=== PATIENT | female | born 1950 | race Asian ===

== ENCOUNTER → 2017-11-19 | Outpatient (CLI) | payer MEDICARE | LOC: CFH 09:41 | PROVIDERS: ATTEND Obstetrics & Gynecology | DX: Z12.31 Encounter for screening mammogram for malignant neoplasm of breast (principal) | CPT/HCPCS: 77067 ==

== ENCOUNTER → 2019-01-10 | Outpatient (CLI) | payer MEDICARE | END | disposition home or self-care (01) | LOC: CFH 10:04 | PROVIDERS: ATTEND Family Medicine | DX: Z12.31 Encounter for screening mammogram for malignant neoplasm of breast (principal) | CPT/HCPCS: 77067 ==

== ENCOUNTER → 2020-01-11 | Outpatient (CLI) | payer MEDICARE | END | disposition home or self-care (01) | LOC: CFH 09:54 | PROVIDERS: ATTEND Family Medicine | DX: Z12.31 Encounter for screening mammogram for malignant neoplasm of breast (principal) | CPT/HCPCS: 77067 ==

== ENCOUNTER → 2021-04-11 | Outpatient (CLI) | payer MEDICARE ==
[~2021-04-11] MED LIST: ACET-2065 PO; ACET325T26 PO; ALEND; ATOR-2 PO; CALC-780 PO; CALC1CAP8 PO; CHOL10003 PO; DORZ1DRO7 EACHEYE; GLIM4TAB8 PO; INSU100C SQ-INSULIN; INSU100I11 SQ-INSULIN; INSU100I13 SQ-INSULIN; INSU100V8 SQ; LATA7.5D EACHEYE; LISI2.5T PO; METF500T17 PO; OXYC5TAB98 PO; alendronate sodium PO
[2021-04-11 13:43] LABS: ALBUMIN 3.3 g/dL (3.4-5.0); ANION GAP 6 mmol/L (5-15); CALCIUM 8.5 mg/dL (8.5-10.1); CHLORIDE 101 mmol/L (98-107)
[2021-04-11 13:46] LABS: ALANINE AMINOTRANSFERASE 90 U/L (12-78); ALKALINE PHOSPHATASE 136 U/L (45-117); BILIRUBIN,TOTAL 1.6 mg/dL (0.2-1.0); CREATININE 0.69 mg/dL (0.55-1.02); TOTAL PROTEIN 7.5 g/dL (6.4-8.2)
== END | disposition home or self-care (01) ==
LOC: STAR 12:34
PROVIDERS: ATTEND Internal Medicine
DX: Z01.818 Encounter for other preprocedural examination (principal); C25.9 Malignant neoplasm of pancreas, unspecified; K83.1 Obstruction of bile duct; Z20.822 Contact with and (suspected) exposure to COVID-19
CPT/HCPCS: 36415; 80053; 93005; U0003; U0005

== ENCOUNTER 2021-04-15 09:18 | Day surgery (SDC) | payer MEDICARE ==
[~2021-04-15] VITALS: Ht 152.4 cm; Wt 36.4 kg
[2021-04-15 09:53] VITALS: BP 114/78
[2021-04-15] MEDS ORDERED: LACTATED RINGERS 1,000 ML IV SCH (10:00)
[2021-04-15] MEDS ORDERED: CHLORHEXIDINE 15 ML UDC PO ONE (10:00)
[2021-04-15] MEDS ORDERED: FENTANYL PF 100 MCG/2ML ONE (11:32)
[2021-04-15] MEDS ORDERED: PROPOFOL 10 MG/ML, 20ML ONE (11:35)
[2021-04-15] MEDS ORDERED: ONDANSETRON 2MG/ML, 2ML ONE (11:35)
[2021-04-15] MEDS ORDERED: SUCCINYLCHOLINE 20 MG/ML, 10ML ONE (11:35)
[2021-04-15] MEDS ORDERED: DEXAMETHASONE 4 MG/ML, 1ML ONE (11:35)
[2021-04-15] MEDS ORDERED: CEFAZOLIN 1,000 MG ONE (11:35)
[2021-04-15] MEDS ORDERED: PHENYLEPHRINE 10 MG/ML ONE (11:35)
[2021-04-15] MEDS ORDERED: PROMETHAZINE 25 MG/ML, 1ML IV PRN (12:00)
[2021-04-15] MEDS ORDERED: ACETAMINOPHEN 650 MG/20.3 ML UDC PO ONE (12:00)
[2021-04-15] MEDS ORDERED: EPHEDRINE 50 MG/ML, 1ML IVPush PRN (12:00)
[2021-04-15] MEDS ORDERED: ONDANSETRON 2MG/ML, 2ML IV ONE (12:00)
[2021-04-15] MEDS ORDERED: LABETALOL 5MG/ML, 20ML IV PRN (12:00)
[2021-04-15] MEDS ORDERED: hydrALAzine 20 MG/ML, 1ML IV PRN (12:00)
[2021-04-15] MEDS ORDERED: METOPROLOL 1 MG/ML, 5ML IV PRN (12:00)
[2021-04-15] MEDS ORDERED: FENTANYL PF 100 MCG/2ML IV PRN (12:00)
[2021-04-15] MEDS ORDERED: OXYcodone 5 MG/5 ML ORAL.SOL UDC PO PRN (12:00)
== END 2021-04-15 14:50 | disposition home or self-care (01) ==
LOC: OUT 09:18
PROVIDERS: ATTEND Internal Medicine
DX: Z46.59 Encounter for fitting and adjustment of other gastrointestinal appliance and device (principal); C25.9 Malignant neoplasm of pancreas, unspecified; K83.1 Obstruction of bile duct; E43 Unspecified severe protein-calorie malnutrition; E11.65 Type 2 diabetes mellitus with hyperglycemia; I10 Essential (primary) hypertension; E78.5 Hyperlipidemia, unspecified; M19.90 Unspecified osteoarthritis, unspecified site; H40.9 Unspecified glaucoma; Z79.4 Long term (current) use of insulin; Z79.899 Other long term (current) drug therapy; Z83.3 Family history of diabetes mellitus; Z80.1 Family history of malignant neoplasm of trachea, bronchus and lung
CPT/HCPCS: 43274; 74328; 82962; C1769; C1894; C2625; J0330; J0690; J1100; J2370; J2405; J2704; J3010; Q9967

== ENCOUNTER 2021-04-25 12:28 | Day surgery (SDC) | payer MEDICARE ==
[~2021-04-25] VITALS: Ht 152.4 cm; Wt 38.0 kg
[~2021-04-25 12:28] MED LIST changes: +OXYC5CAP2 PO
[2021-04-25 12:39] VITALS: BP 152/83
[2021-04-25] MEDS ORDERED: CHLORHEXIDINE 15 ML UDC ONE (12:44)
[2021-04-25] MEDS ORDERED: BUPIVACAINE/PF 0.5% ONE (12:47)
[2021-04-25] MEDS ORDERED: HEPARIN 1,000 UNITS/ML, 10ML ONE (12:47)
[2021-04-25] MEDS ORDERED: HEPARIN 5,000 UNITS/ML, 1ML ONE (12:47)
[2021-04-25] MEDS ORDERED: EPINEPHRINE 1 MG/ML, 1ML ONE (12:47)
[2021-04-25] MEDS ORDERED: LIDOCAINE/PF 1%, 30ML ONE (12:47)
[2021-04-25] MEDS ORDERED: LACTATED RINGERS 1,000 ML IV SCH (13:00)
[2021-04-25] MEDS ORDERED: CHLORHEXIDINE 15 ML UDC PO ONE (13:00)
[2021-04-25] MEDS ORDERED: FENTANYL PF 100 MCG/2ML ONE (13:06)
[2021-04-25] MEDS ORDERED: CEFAZOLIN 1,000 MG ONE (13:07)
[2021-04-25] MEDS ORDERED: DEXAMETHASONE 4 MG/ML, 1ML ONE (13:07)
[2021-04-25] MEDS ORDERED: PROPOFOL 10 MG/ML, 20ML ONE ×2 (13:43)
[2021-04-25] MEDS ORDERED: ONDANSETRON 2MG/ML, 2ML ONE (13:43)
[2021-04-25] MEDS ORDERED: ACETAMINOPHEN 325 MG TABLET PO PRN (14:00)
[2021-04-25] MEDS ORDERED: PROMETHAZINE 25 MG/ML, 1ML IVPush PRN (14:00)
[2021-04-25] MEDS ORDERED: HYDROmorphone 1 MG/ML, 1ML INJ IVPush PRN (14:00)
[2021-04-25] MEDS ORDERED: FENTANYL PF 100 MCG/2ML IV PRN (14:00)
[2021-04-25] MEDS ORDERED: ONDANSETRON 2MG/ML, 2ML IVPush PRN (14:00)
[2021-04-25] MEDS ORDERED: hydrALAzine 20 MG/ML, 1ML IV PRN (14:00)
[2021-04-25] MEDS ORDERED: LABETALOL 5MG/ML, 20ML IV PRN (14:00)
[2021-04-25] MEDS ORDERED: OXYcodone 5 MG/5 ML ORAL.SOL UDC PO PRN (14:00)
== END 2021-04-25 15:35 | disposition home or self-care (01) ==
LOC: OUT 12:28
PROVIDERS: ATTEND Surgery
DX: C25.0 Malignant neoplasm of head of pancreas (principal); E11.9 Type 2 diabetes mellitus without complications; I10 Essential (primary) hypertension; E78.5 Hyperlipidemia, unspecified; Z20.822 Contact with and (suspected) exposure to COVID-19; Z79.4 Long term (current) use of insulin; Z79.891 Long term (current) use of opiate analgesic; Z79.899 Other long term (current) drug therapy
CPT/HCPCS: 36561; 77001; 82962; C1788; J0171; J0690; J1100; J1644; J2405; J2704; J3010; J7120; U0003; U0005

== ENCOUNTER 2021-05-01 09:03 | Day surgery (SDC) | payer MEDICARE ==
[~2021-05-01] VITALS: Ht 152.4 cm; Wt 38.1 kg
[2021-05-01] MEDS ORDERED: SODIUM CHLORIDE 0.9% 1,000 ML IV SCH (10:00)
[2021-05-01 10:29] VITALS: BP 152/67
[2021-05-01] MEDS ORDERED: TRAM50TA2 PO (10:35)
[2021-05-01] MEDS ORDERED: PROM25TA10 PO (10:35)
[2021-05-01 10:49] LABS: INTERNATIONAL NORMALIZED RATIO 0.97 (0.93-1.1); PROTHROMBIN TIME 10.4 Seconds (9.6-11.5)
[2021-05-01] MEDS ORDERED: MIDAZOLAM 1 MG/ML, 5ML ONE (10:51)
[2021-05-01] MEDS ORDERED: NALOXONE 1 MG/ML, 2ML ONE (10:51)
[2021-05-01] MEDS ORDERED: FENTANYL PF 100 MCG/2ML ONE (10:51)
[2021-05-01] MEDS ORDERED: FLUMAZENIL 0.1 MG/1 ML, 5ML ONE (10:51)
== END 2021-05-01 12:48 | disposition home or self-care (01) ==
LOC: OUT 09:03
PROVIDERS: ATTEND Internal Medicine Hematology & Oncology
DX: C25.0 Malignant neoplasm of head of pancreas (principal); C78.7 Secondary malignant neoplasm of liver and intrahepatic bile duct; E11.9 Type 2 diabetes mellitus without complications; I10 Essential (primary) hypertension; E78.5 Hyperlipidemia, unspecified; M81.0 Age-related osteoporosis without current pathological fracture; Z79.4 Long term (current) use of insulin; Z79.899 Other long term (current) drug therapy; Z80.1 Family history of malignant neoplasm of trachea, bronchus and lung
CPT/HCPCS: 36415; 47000; 77012; 85610; 88307; 99156; 99157; J2250; J3010; J7030; J2310

== ENCOUNTER 2021-05-06 22:57 | Inpatient (IN) | payer MEDICARE ==
[~2021-05-06] VITALS: Ht 152.4 cm; Wt 42.9 kg
[~2021-05-06 22:57] MED LIST changes: +PROM25TA10 PO; +TRAM50TA2 PO
[2021-05-07 00:19] VITALS: BP 103/65
[2021-05-07 00:27] VITALS: BP 103/65
[2021-05-07] MEDS ORDERED: DOCUSATE 100 MG CAPSULE PO PRN (01:30)
[2021-05-07] MEDS ORDERED: LABETALOL 5MG/ML, 20ML IVPush PRN (01:30)
[2021-05-07] MEDS: PIPERACILLIN/TAZO 3.375 GM in DEXTROSE 5% 50 ML IVPB SCH ×3 (02:41→17:30)
[2021-05-07] MEDS: ENOXAPARIN 40 MG/0.4 ML SQ SCH (02:42)
[2021-05-07 03:01] LABS: BASOPHILS % (AUTO) 0 % (0-1); EOSINOPHILS % (AUTO) 0 % (1-7); LYMPHOCYTES % (AUTO) 2 % (22-44); MEAN CORPUSCULAR HEMOGLOBIN 31.3 pg (27.0-34.8); MEAN CORPUSCULAR HGB CONC 33.7 g/dL (32.4-35.8); MEAN PLATELET VOLUME 8.5 fL (7.4-10.4); MONOCYTES % (AUTO) 4 % (2-9); NEUTROPHILS % (AUTO) 94 % (42-75); PLATELET COUNT 130 x10^3/uL (130-400); RED BLOOD COUNT 3.22 x10^6/uL (3.82-5.3); RED CELL DISTRIBUTION WIDTH 15.6 % (9.6-15.2)
[2021-05-07 03:16] LABS: ALANINE AMINOTRANSFERASE 547 U/L (12-78); ALBUMIN 2.8 g/dL (3.4-5.0); ANION GAP 10 mmol/L (5-15); CALCIUM 8.4 mg/dL (8.5-10.1); CHLORIDE 104 mmol/L (98-107); CREATININE 0.52 mg/dL (0.55-1.02)
[2021-05-07 03:19] LABS: ALKALINE PHOSPHATASE 229 U/L (45-117); BILIRUBIN,TOTAL 2.8 mg/dL (0.2-1.0); TOTAL PROTEIN 6.3 g/dL (6.4-8.2)
[2021-05-07] MEDS: OXYcodone IR 5MG TABLET PO PRN ×2 (07:08→11:09)
[2021-05-07 07:14] VITALS: BP 128/76
[2021-05-07] MEDS: INSULIN LISPRO 100 UNITS/ML, PEN SQ-INSULIN SCH ×4 (08:11→21:17)
[2021-05-07 12:58] VITALS: BP 113/70
[2021-05-07] MEDS: KETOROLAC 30 MG/1 ML IV PRN ×2 (13:47→23:22)
[2021-05-07 19:10] VITALS: BP 124/69
[2021-05-07] MEDS ORDERED: INSULIN GLARGINE 100 UNITS/ML, PEN SQ-INSULIN SCH (21:00)
[2021-05-08] MEDS ORDERED: PIPERACILLIN/TAZO 4.5 GM in DEXTROSE 5% 50 ML IVPB SCH (01:30)
[2021-05-08 01:31] VITALS: BP 137/76
[2021-05-08] MEDS: ENOXAPARIN 40 MG/0.4 ML SQ SCH (02:51)
[2021-05-08] MEDS: OXYcodone IR 5MG TABLET PO PRN ×2 (02:53→15:15)
[2021-05-08 04:50] LABS: BASOPHILS % (AUTO) 0 % (0-1); EOSINOPHILS % (AUTO) 0 % (1-7); LYMPHOCYTES % (AUTO) 5 % (22-44); MEAN CORPUSCULAR HEMOGLOBIN 31.8 pg (27.0-34.8); MEAN PLATELET VOLUME 8.5 fL (7.4-10.4); MONOCYTES % (AUTO) 3 % (2-9); NEUTROPHILS % (AUTO) 91 % (42-75); PLATELET COUNT 133 x10^3/uL (130-400); RED BLOOD COUNT 3.33 x10^6/uL (3.82-5.3); RED CELL DISTRIBUTION WIDTH 15.4 % (9.6-15.2)
[2021-05-08 05:01] LABS: ALANINE AMINOTRANSFERASE 443 U/L (12-78); ALBUMIN 2.7 g/dL (3.4-5.0); ANION GAP 10 mmol/L (5-15); CALCIUM 8.2 mg/dL (8.5-10.1); CHLORIDE 100 mmol/L (98-107); CREATININE 0.61 mg/dL (0.55-1.02)
[2021-05-08 05:03] LABS: ALKALINE PHOSPHATASE 244 U/L (45-117); BILIRUBIN,TOTAL 2.4 mg/dL (0.2-1.0); TOTAL PROTEIN 6.5 g/dL (6.4-8.2)
[2021-05-08 07:07] VITALS: BP 147/72
[2021-05-08] MEDS: INSULIN LISPRO 100 UNITS/ML, PEN SQ-INSULIN SCH ×4 (07:52→20:55)
[2021-05-08] MEDS ORDERED: PIPERACILLIN/TAZO 4.5 GM in DEXTROSE 5% 100 ML IVPB SCH (08:55)
[2021-05-08 11:15] VITALS: BP 148/80
[2021-05-08] MEDS: ONDANSETRON 2MG/ML, 2ML IVPush PRN (11:48)
[2021-05-08 12:48] VITALS: BP 146/73
[2021-05-08] MEDS: PIPERACILLIN/TAZO 4.5 GM in DEXTROSE 5% 100 ML IVPB SCH ×2 (15:14→20:56)
[2021-05-08 18:31] VITALS: BP 146/76
[2021-05-08] MEDS ORDERED: INSULIN GLARGINE 100 UNITS/ML, PEN SQ-INSULIN SCH (21:00)
[2021-05-08] MEDS: KETOROLAC 30 MG/1 ML IV PRN (21:49)
[2021-05-09 01:24] VITALS: BP 146/71
[2021-05-09] MEDS: PIPERACILLIN/TAZO 4.5 GM in DEXTROSE 5% 100 ML IVPB SCH ×4 (03:03→21:24)
[2021-05-09] MEDS: ENOXAPARIN 40 MG/0.4 ML SQ SCH (05:18)
[2021-05-09 05:31] LABS: BASOPHILS % (AUTO) 0 % (0-1); EOSINOPHILS % (AUTO) 0 % (1-7); LYMPHOCYTES % (AUTO) 10 % (22-44); MEAN CORPUSCULAR HEMOGLOBIN 31.5 pg (27.0-34.8); MEAN CORPUSCULAR HGB CONC 33.9 g/dL (32.4-35.8); MEAN PLATELET VOLUME 9.1 fL (7.4-10.4); MONOCYTES % (AUTO) 4 % (2-9); NEUTROPHILS % (AUTO) 86 % (42-75); PLATELET COUNT 161 x10^3/uL (130-400); RED BLOOD COUNT 3.35 x10^6/uL (3.82-5.3); RED CELL DISTRIBUTION WIDTH 15.7 % (9.6-15.2)
[2021-05-09 05:41] LABS: CHLORIDE 97 mmol/L (98-107)
[2021-05-09 05:48] LABS: ALANINE AMINOTRANSFERASE 295 U/L (12-78); ALBUMIN 2.7 g/dL (3.4-5.0); ALKALINE PHOSPHATASE 229 U/L (45-117); ANION GAP 13 mmol/L (5-15); BILIRUBIN,TOTAL 1.5 mg/dL (0.2-1.0); CALCIUM 8.1 mg/dL (8.5-10.1); CREATININE 0.58 mg/dL (0.55-1.02); TOTAL PROTEIN 6.5 g/dL (6.4-8.2)
[2021-05-09 06:37] VITALS: BP 131/75
[2021-05-09] MEDS: INSULIN LISPRO 100 UNITS/ML, PEN SQ-INSULIN SCH ×4 (07:34→20:50)
[2021-05-09 12:23] VITALS: BP 135/71
[2021-05-09] MEDS: ONDANSETRON 2MG/ML, 2ML IVPush PRN ×2 (12:35→20:56)
[2021-05-09] MEDS: KETOROLAC 30 MG/1 ML IV PRN ×2 (16:06→21:36)
[2021-05-09] MEDS: PROMETHAZINE 25 MG/ML, 1ML IM PRN (17:08)
[2021-05-09 18:44] VITALS: BP 132/76
[2021-05-09] MEDS: MELATONIN 5 MG TABLET PO PRN (21:24)
[2021-05-09] MEDS: OXYcodone IR 5MG TABLET PO PRN (22:18)
[2021-05-10 01:19] VITALS: BP 129/69
[2021-05-10] MEDS: PIPERACILLIN/TAZO 4.5 GM in DEXTROSE 5% 100 ML IVPB SCH ×2 (03:15→09:22)
[2021-05-10] MEDS: ENOXAPARIN 40 MG/0.4 ML SQ SCH (05:26)
[2021-05-10 07:10] VITALS: BP 123/73
[2021-05-10] MEDS: INSULIN LISPRO 100 UNITS/ML, PEN SQ-INSULIN SCH ×4 (07:49→22:00)
[2021-05-10] MEDS: INSULIN GLARGINE 100 UNITS/ML, PEN SQ-INSULIN SCH ×2 (11:12→22:01)
[2021-05-10] MEDS: PROMETHAZINE 25 MG/ML, 1ML IM PRN (13:57)
[2021-05-10 14:29] VITALS: BP 121/72
[2021-05-10 17:10] VITALS: BP 122/75
[2021-05-10] MEDS: OXYcodone IR 5MG TABLET PO PRN (19:24)
[2021-05-10] MEDS: CIPROFLOXACIN 500 MG TABLET PO SCH (21:51)
[2021-05-10] MEDS: MELATONIN 5 MG TABLET PO PRN (21:59)
[2021-05-11] VITALS (7 sets, daily range): BP systolic 106–129; BP diastolic 60–78
[2021-05-11 05:07] LABS: BASOPHILS % (AUTO) 1 % (0-1); EOSINOPHILS % (AUTO) 0 % (1-7); LYMPHOCYTES % (AUTO) 17 % (22-44); MEAN CORPUSCULAR HEMOGLOBIN 32.4 pg (27.0-34.8); MEAN CORPUSCULAR HGB CONC 34.8 g/dL (32.4-35.8); MEAN PLATELET VOLUME 8.3 fL (7.4-10.4); MONOCYTES % (AUTO) 7 % (2-9); NEUTROPHILS % (AUTO) 75 % (42-75); PLATELET COUNT 211 x10^3/uL (130-400); RED BLOOD COUNT 2.31 x10^6/uL (3.82-5.3); RED CELL DISTRIBUTION WIDTH 14.8 % (9.6-15.2)
[2021-05-11 05:18] LABS: CHLORIDE 99 mmol/L (98-107)
[2021-05-11 05:24] LABS: ALANINE AMINOTRANSFERASE 147 U/L (12-78); ALBUMIN 2.5 g/dL (3.4-5.0); ALKALINE PHOSPHATASE 147 U/L (45-117); ANION GAP 7 mmol/L (5-15); BILIRUBIN,TOTAL 0.8 mg/dL (0.2-1.0); CREATININE 0.36 mg/dL (0.55-1.02); TOTAL PROTEIN 5.6 g/dL (6.4-8.2)
[2021-05-11] MEDS: PROMETHAZINE 25 MG/ML, 1ML IM PRN ×2 (05:43→22:51)
[2021-05-11] MEDS: INSULIN LISPRO 100 UNITS/ML, PEN SQ-INSULIN SCH ×4 (07:32→20:55)
[2021-05-11] MEDS: CIPROFLOXACIN 500 MG TABLET PO SCH ×2 (08:10→20:41)
[2021-05-11] MEDS ORDERED: OMNIPAQUE 350 MG/ML, 75ML BOTTLE ONE (09:49)
[2021-05-11] MEDS: PANTOPRAZOLE 40 MG IV IVPush SCH ×2 (10:27→20:41)
[2021-05-11] MEDS: ONDANSETRON 2MG/ML, 2ML IVPush PRN ×2 (13:37→19:48)
[2021-05-11] MEDS: INSULIN GLARGINE 100 UNITS/ML, PEN SQ-INSULIN SCH (20:55)
[2021-05-12 02:25] VITALS: BP 123/69
[2021-05-12 06:56] VITALS: BP 138/76
[2021-05-12] MEDS: INSULIN LISPRO 100 UNITS/ML, PEN SQ-INSULIN SCH ×2 (07:00→11:10)
[2021-05-12] MEDS: CIPROFLOXACIN 500 MG TABLET PO SCH (09:05)
[2021-05-12] MEDS: PANTOPRAZOLE 40 MG IV IVPush SCH (09:05)
[2021-05-12] MEDS ORDERED: PROPOFOL 100 ML ONE (13:30)
[2021-05-12] MEDS ORDERED: FENTANYL PF 100 MCG/2ML IV PRN (14:30)
[2021-05-12] MEDS ORDERED: OXYcodone 5 MG/5 ML ORAL.SOL UDC PO PRN (14:30)
[2021-05-12] MEDS ORDERED: ONDANSETRON 2MG/ML, 2ML IVPush PRN (14:30)
[2021-05-12] MEDS ORDERED: LORazepam 2 MG/ML, 1ML IVPush PRN (14:30)
[2021-05-12] MEDS ORDERED: HYDROmorphone 1 MG/ML, 1ML INJ IVPush PRN (14:30)
[2021-05-12] MEDS ORDERED: PROMETHAZINE 25 MG SUPP PR PRN (14:30)
[2021-05-12] MEDS ORDERED: ACETAMINOPHEN 325 MG TABLET PO PRN (14:30)
[2021-05-12] MEDS ORDERED: PROMETHAZINE 25 MG/ML, 1ML IVPush PRN (14:30)
[2021-05-12] MEDS ORDERED: OXYcodone 5 MG/5 ML ORAL.SOL UDC ONE (14:35)
[2021-05-12] MEDS ORDERED: FENTANYL PF 100 MCG/2ML ONE (14:35)
[2021-05-12] MEDS ORDERED: PANT40TA3 PO (15:30)
[2021-05-12] MEDS ORDERED: TRAM50TA2 PO (15:30)
[2021-05-12] MEDS ORDERED: PROM25TA10 PO (15:30)
[2021-05-12] MEDS ORDERED: CIPR500T87 PO (15:30)
== END 2021-05-12 16:55 | disposition home health service (06) | DRG 871 ==
LOC: 4NW 05-07 00:09
PROVIDERS: ADMIT Internal Medicine; ATTEND Hospitalist
PROC: 30233N1 Transfusion of Nonautologous Red Blood Cells into Peripheral Vein, Percutaneous Approach (ICD-10-PCS; principal; 2021-05-11)
PROC: 0DB78ZX Excision of Stomach, Pylorus, Via Natural or Artificial Opening Endoscopic, Diagnostic (ICD-10-PCS; 2021-05-12)
DX: A41.51 Sepsis due to Escherichia coli [E. coli] (principal); K22.11 Ulcer of esophagus with bleeding; K25.4 Chronic or unspecified gastric ulcer with hemorrhage; K26.4 Chronic or unspecified duodenal ulcer with hemorrhage; C78.7 Secondary malignant neoplasm of liver and intrahepatic bile duct; D62 Acute posthemorrhagic anemia; R64 Cachexia; Z68.1 Body mass index [BMI] 19.9 or less, adult; K83.09 Other cholangitis; E11.9 Type 2 diabetes mellitus without complications; E78.5 Hyperlipidemia, unspecified; I10 Essential (primary) hypertension; K52.9 Noninfective gastroenteritis and colitis, unspecified; K75.9 Inflammatory liver disease, unspecified; M81.0 Age-related osteoporosis without current pathological fracture; Z79.4 Long term (current) use of insulin; Z80.1 Family history of malignant neoplasm of trachea, bronchus and lung; Z83.3 Family history of diabetes mellitus; Z85.07 Personal history of malignant neoplasm of pancreas; Z20.822 Contact with and (suspected) exposure to COVID-19
CPT/HCPCS: 36415; 74174; 74181; 80053; 82962; 83690; 83735; 84100; 85018; 85025; 86850; 86900; 86923; 87040; 87077; 87186; 87635; 88305; G0378; J1650; J1885; J2405; J2543; J2550; J2704; J3010; Q9967; C9113; J1815; P9016

== ENCOUNTER 2021-06-17 05:38 | Day surgery (SDC) | payer MEDICARE ==
[~2021-06-17] VITALS: Ht 152.4 cm; Wt 39.5 kg
[~2021-06-17 05:38] MED LIST changes: +CIPR500T87 PO; +ONDA4TAB7 PO; +PANT40TA3 PO; +TRAZ50TA66 PO
[2021-06-17 06:33] VITALS: BP 131/77
[2021-06-17] MEDS ORDERED: CHLORHEXIDINE 15 ML UDC ONE (06:43)
[2021-06-17] MEDS ORDERED: LIDOCAINE-MPF 1%, 2ML ONE (06:43)
[2021-06-17] MEDS ORDERED: LIDOCAINE-MPF 1%, 2ML INFIL ONE (07:00)
[2021-06-17] MEDS ORDERED: LACTATED RINGERS 1,000 ML IV SCH (07:00)
[2021-06-17] MEDS ORDERED: CHLORHEXIDINE 15 ML UDC PO ONE (07:00)
[2021-06-17] MEDS ORDERED: OXYC5CAP2 PO (07:02)
[2021-06-17] MEDS ORDERED: TRAM50TA2 PO (07:02)
[2021-06-17] MEDS ORDERED: OMNIPAQUE 350 MG/ML, 50 ML BOTTLE ONE (07:21)
[2021-06-17] MEDS ORDERED: FENTANYL PF 100 MCG/2ML ONE (07:35)
[2021-06-17] MEDS ORDERED: DEXAMETHASONE 4 MG/ML, 5ML ONE (07:41)
[2021-06-17] MEDS ORDERED: EPHEDRINE 50 MG/ML, 1ML ONE (07:41)
[2021-06-17] MEDS ORDERED: LABETALOL 5MG/ML, 20ML IV PRN (08:00)
[2021-06-17] MEDS ORDERED: HYDROmorphone 1 MG/ML, 1ML INJ IVPush PRN (08:00)
[2021-06-17] MEDS ORDERED: MEPERIDINE/PF 25MG/0.5ML IVPush PRN (08:00)
[2021-06-17] MEDS ORDERED: MIDAZOLAM 1 MG/ML, 2ML IV PRN (08:00)
[2021-06-17] MEDS ORDERED: PROMETHAZINE 25 MG/ML, 1ML IVPush PRN (08:00)
[2021-06-17] MEDS ORDERED: FENTANYL PF 100 MCG/2ML IV PRN (08:00)
[2021-06-17] MEDS ORDERED: OXYcodone 5 MG/5 ML ORAL.SOL UDC PO PRN (08:00)
[2021-06-17] MEDS ORDERED: ALBUTEROL SULFATE 2.5 MG/3 ML NPPB PRN (08:00)
[2021-06-17] MEDS ORDERED: AMPICILLIN/SULBACTAM 1,500 MG in SODIUM CHLORIDE 0.9% 50 ML IV ONE (08:30)
[2021-06-17] MEDS ORDERED: LIDOCAINE-MPF 2% ,5ML ONE (08:40)
[2021-06-17] MEDS ORDERED: PROPOFOL 10 MG/ML, 20ML ONE (08:46)
[2021-06-17] MEDS ORDERED: SUCCINYLCHOLINE 20 MG/ML, 10ML ONE (08:46)
[2021-06-17] MEDS ORDERED: ONDANSETRON 2MG/ML, 2ML ONE (08:46)
[2021-06-17] MEDS ORDERED: ROCURONIUM 10MG/ML,5ML ONE (08:46)
== END 2021-06-17 10:10 | disposition home or self-care (01) ==
LOC: OUT 05:38
PROVIDERS: ATTEND Internal Medicine Geriatric Medicine
DX: Z46.59 Encounter for fitting and adjustment of other gastrointestinal appliance and device (principal); C25.9 Malignant neoplasm of pancreas, unspecified; C78.7 Secondary malignant neoplasm of liver and intrahepatic bile duct; K80.51 Calculus of bile duct without cholangitis or cholecystitis with obstruction; K21.9 Gastro-esophageal reflux disease without esophagitis; E11.9 Type 2 diabetes mellitus without complications; Z79.899 Other long term (current) drug therapy
CPT/HCPCS: 43264; 43276; 74328; 82962; C1769; C2625; J0295; J0330; J2405; J2704; J3010; J7120; Q9967; J1100